=== PATIENT | male | born 1985 | race Caucasian/White ===

== ENCOUNTER → 2017-05-26 | Outpatient (CLI) | payer OTHER ==
[2015-09-04 20:02] VITALS: BP 138/89
== END | disposition home or self-care (01) ==
LOC: SLPLAB 18:20
PROVIDERS: ATTEND Family Medicine
DX: G47.33 Obstructive sleep apnea (adult) (pediatric) (principal); R06.83 Snoring
CPT/HCPCS: 95810

== ENCOUNTER → 2020-07-23 | Outpatient (CLI) | payer OTHER ==
[2015-09-04 20:02] VITALS: BP 138/89
--- NOTE | 2020-07-23 12:27 | RAD ---
Examination: MRI of the right knee without contrast HISTORY: History of medial right knee pain after twisting COMPARISON: None available TECHNIQUE: Multiplanar, multisequence MR imaging of the right knee was performed without contrast FINDINGS: The anterior cruciate ligament, posterior cruciate ligament appear intact. There is blunting of the body of the medial meniscus with questionable minimal extrusion of the medial meniscus medially likely secondary to tear. Lateral collateral ligament appears intact. The medial collateral ligament appears intact. There is multiloculated cystic structure identified measuring 3.8 cm extending from the semimembranosus bursa region extending deep to the tibial collateral ligament could be multiloculated semimembranosus tibial collateral ligament bursal fluid or meniscal cyst extending from the medial meniscus. There is a 4.5 mm low intensity focus identified in the posterior aspect of the semimembranosus bursal fluid could be a small loose body or synovitis thickening. The lateral collateral ligamentous complex including the fibular collateral ligament, biceps femoris tendon, popliteus tendon appears intact Moderate joint space loss identified in the medial, lateral compartment femoral compartments. There is deep fissuring of cartilage identified in the medial compartment. There is mild superficial fraying of cartilage identified in the lateral compartment femoral compartments with the medial, lateral retinaculum appears intact. Small knee joint effusion. The extensor mechanism is intact. There is a large enthesophyte identified at the tibial tuberosity. IMPRESSION: 1. Tear of the body of the medial meniscus. There is multiloculated cystic structure identified measuring 3.8 cm extending from the semimembranosus bursa region extending deep to the tibial collateral ligament could be multiloculated semimembranosus tibial collateral ligament bursal fluid/bursitis or meniscal cyst extending from the medial meniscus. 2.A 4.5 mm low intensity focus identified in the posterior aspect of the semimembranosus bursal fluid could be a small loose body or synovial thickening. 3. 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 Grade II chondromalacia medial compartment. Grade I chondromalacia lateral, patellofemoral compartments. Electronically signed by: Issac Hanna MD (07/23/2020 12:23 PM) [id number]
== END | disposition home or self-care (01) ==
LOC: MRI 09:46
PROVIDERS: ATTEND Preventive Medicine Occupational Medicine
DX: S83.241A Other tear of medial meniscus, current injury, right knee, initial encounter (principal); M22.41 Chondromalacia patellae, right knee; M25.461 Effusion, right knee; X58.XXXA Exposure to other specified factors, initial encounter; Y93.89 Activity, other specified; Y92.89 Other specified places as the place of occurrence of the external cause; Y99.8 Other external cause status
CPT/HCPCS: 73721